=== PATIENT | female | born 1955 | race Caucasian/White ===

== ENCOUNTER 2016-10-21 17:07 | Emergency (ER) | payer OTHER ==
[~2016-10-21] VITALS: Ht 162.6 cm; Wt 98.9 kg
[2016-10-21 19:45] VITALS: BP 138/80
== END 2016-10-21 19:49 | disposition home or self-care (01) ==
LOC: ER 17:15
DX: S90.02XA Contusion of left ankle, initial encounter (principal); E11.9 Type 2 diabetes mellitus without complications; I50.9 Heart failure, unspecified; M17.12 Unilateral primary osteoarthritis, left knee; Y93.89 Activity, other specified; Y99.9 Unspecified external cause status; Y92.89 Other specified places as the place of occurrence of the external cause
CPT/HCPCS: 93971

== ENCOUNTER 2016-10-29 22:22 | Inpatient (IN) | payer OTHER ==
[~2016-10-29] VITALS: Ht 167.6 cm; Wt 81.6 kg
[2016-10-29 23:00] LABS: Basophils # (auto) 0 uL; Eosinophils # (auto) 0 uL; Hematocrit 42.2 % (36.0-46.0); Hemoglobin 13.6 g/dL (12.2-16.2); Lymphocytes # (auto) 1.4 uL; Lymphocytes % (auto) 7.3 % (10.0-50.0); Mean Corpuscular Hemoglobin 28.6 pg (28.0-32.0); Mean Corpuscular Hgb Conc. 32.2 g/dL (32.0-36.0); Mean Corpuscular Volume 88.9 fL (80.0-100.0); Mean Platelet Volume 7.2 fL (7.4-10.4); Monocytes # (auto) 0.3 uL; Monocytes % (auto) 1.7 % (0.0-12.0); Neutrophils # (auto) 17.9 uL; Platelet Count (auto) 326 10^3/uL (140-450); SUSPECT VIEW TRANSMISSION; White Blood Cell 19.6 10^3/uL (4.4-10.8)
[2016-10-29 23:18] LABS: Albumin 3.3 g/dL (3.4-5.0); Anion Gap 13 (5-15); Blood Urea Nitrogen 20 mg/dL (7-18); Calcium 8.5 mg/dL (8.5-10.1); Carbon Dioxide 25 mmol/L (21-32); Chloride 100 mmol/L (98-107); Glucose 215 mg/dL (74-106); Potassium 3.5 mmol/L (3.5-5.1); Sodium 138 mmol/L (136-145)
[2016-10-29 23:20] LABS: Aspartate Aminotransferase 26 U/L (15-37); BUN/Creatinine Ratio 10.5; GFR African American 34 mL/min; GFR Non-African American 28 mL/min; INR 1.1 (0.9-1.15); Partial Thromboplastin Time 28.2 sec (22.64-33.71); Prothrombin Time 11.3 sec (9.37-12.3)
[2016-10-29 23:24] LABS: Alkaline Phosphatase 85 U/L (45-117); Bilirubin, Total 0.7 mg/dL (0.2-1.0); Magnesium 1.7 mg/dL (1.6-2.6); Total Protein 6.8 g/dL (6.4-8.2)
[2016-10-30] MEDS ORDERED: SODIUM CHLORIDE 0.9% 1,000 ML IV ONE ×3 (00:50→13:00)
[2016-10-30] MEDS ORDERED: cefTRIAXone 1GM/50ML D5W 50 ML IV ONE (03:15)
[2016-10-30] MEDS ORDERED: ONDANSETRON HCL 4 MG/2 ML VIAL IV ONE (04:00)
[2016-10-30] MEDS ORDERED: MORPHINE SULFATE 4 MG/ML SYRG IV ONE (04:00)
[2016-10-30] MEDS ORDERED: MORPHINE SULFATE 4 MG/ML SYRG ONE (04:25)
[2016-10-30] MEDS ORDERED: SODIUM CHLORIDE 0.9% 1,000 ML IV SCH (04:31)
[2016-10-30] MEDS ORDERED: NITROGLYCERIN 0.4 MG SL TAB SL PRN (04:45)
[2016-10-30] MEDS ORDERED: AZITHROMYCIN 500MG/D5W 250ML 250 ML IV ONE (04:45)
[2016-10-30] MEDS ORDERED: MORPHINE SULF INJ 2 MG/ML SYRINGE 1ML IV PRN (04:45)
[2016-10-30] MEDS ORDERED: ASPirin 81 mg TAB PO ONE (04:45)
[2016-10-30] MEDS ORDERED: ACETAMINOPHEN 325 MG TAB PO PRN (04:45)
[2016-10-30] MEDS ORDERED: DEXTROSE (50%) 50ML SYRG IV PRN (04:45)
[2016-10-30 05:55] VITALS: BP 103/97
[2016-10-30] MEDS: ACCU-CHEK COMFORT CURVE STRIP VI SCH ×3 (06:00→18:44)
[2016-10-30] MEDS: InsuLIN REG 1unit/0.01ml Soln (100units/ml) SC SCH ×3 (06:00→18:00)
[2016-10-30] MEDS: GABAPENTIN 300 MG CAP PO SCH ×3 (06:39→22:10)
[2016-10-30 08:31] VITALS: BP 113/58
[2016-10-30] MEDS: FAMOTIDINE 20 MG TAB PO SCH ×2 (09:55→22:11)
[2016-10-30] MEDS: HYDROcodone-ACET 5/325MG TAB PO PRN ×2 (09:57→22:10)
[2016-10-30] MEDS: METOPROLOL SUCCINATE XL 50 MG TAB PO SCH (09:58)
[2016-10-30] MEDS ORDERED: BENAZEPRIL HCL 10 MG TAB PO SCH (10:00)
[2016-10-30] MEDS ORDERED: ENOXAPARIN SOD 30 MG/0.3 ML SYRINGE SC SCH (10:00)
[2016-10-30] MEDS ORDERED: ENOXAPARIN SOD 40 MG/0.4 ML SYRINGE SC SCH (10:00)
[2016-10-30] MEDS: SODIUM CHLORIDE 0.9% 1,000 ML IV SCH ×2 (12:00→22:00)
[2016-10-30 12:33] VITALS: BP 102/65
[2016-10-30 12:40] LABS: Hematocrit 40.7 % (36.0-46.0); Hemoglobin 13.4 g/dL (12.2-16.2); Mean Corpuscular Hemoglobin 28.8 pg (28.0-32.0); Mean Corpuscular Hgb Conc. 32.8 g/dL (32.0-36.0); Mean Corpuscular Volume 87.9 fL (80.0-100.0); Mean Platelet Volume 7.6 fL (7.4-10.4); Platelet Count (auto) 309 10^3/uL (140-450); Red Cell Distribution Width 14.4 % (11.6-16.0); SUSPECT VIEW TRANSMISSION; White Blood Cell 20.6 10^3/uL (4.4-10.8)
[2016-10-30 12:49] LABS: Metamyelocytes % 0; Myelocytes % 0; Promyelocytes % 0; Reactive Lymphocytes 0
[2016-10-30 12:56] LABS: Calcium 8.6 mg/dL (8.5-10.1); Magnesium 1.9 mg/dL (1.6-2.6); Potassium 4.3 mmol/L (3.5-5.1)
[2016-10-30 13:10] LABS: Platelet Estimate Adequate; RBC Morphology Normal
[2016-10-30 16:56] VITALS: BP 141/70
[2016-10-30] MEDS: MORPHINE SULF INJ 2 MG/ML SYRINGE 1ML IV PRN (18:40)
[2016-10-30] MEDS: ONDANSETRON HCL 4 MG/2 ML VIAL IV PRN (18:40)
[2016-10-30 22:00] VITALS: BP 113/60
[2016-10-31] VITALS (7 sets, daily range): BP systolic 116–153; BP diastolic 62–89
[2016-10-31] MEDS: MORPHINE SULF INJ 2 MG/ML SYRINGE 1ML IV PRN (04:22)
[2016-10-31] MEDS: InsuLIN REG 1unit/0.01ml Soln (100units/ml) SC SCH ×4 (05:59→18:00)
[2016-10-31] MEDS: ACCU-CHEK COMFORT CURVE STRIP VI SCH ×4 (06:00→16:44)
[2016-10-31] MEDS: GABAPENTIN 300 MG CAP PO SCH ×3 (06:04→21:41)
[2016-10-31 06:41] LABS: Basophils # (auto) 0 uL; Basophils % (auto) 0.2 % (0.0-2.0); Eosinophils # (auto) 0 uL; Hemoglobin 12.2 g/dL (12.2-16.2); Lymphocytes % (auto) 7.7 % (10.0-50.0); Mean Corpuscular Hemoglobin 28.7 pg (28.0-32.0); Mean Corpuscular Hgb Conc. 32.2 g/dL (32.0-36.0); Mean Corpuscular Volume 88.9 fL (80.0-100.0); Mean Platelet Volume 7.7 fL (7.4-10.4); Monocytes # (auto) 0.7 uL; Monocytes % (auto) 5.2 % (0.0-12.0); Neutrophils # (auto) 11.8 uL; Neutrophils % (auto) 86.9 % (37.0-80.0); Platelet Count (auto) 286 10^3/uL (140-450); White Blood Cell 13.6 10^3/uL (4.4-10.8)
[2016-10-31 06:58] LABS: BUN/Creatinine Ratio 34.6; Calcium 8.7 mg/dL (8.5-10.1); Magnesium 2.5 mg/dL (1.6-2.6); Potassium 3.6 mmol/L (3.5-5.1)
[2016-10-31] MEDS: SODIUM CHLORIDE 0.9% 1,000 ML IV SCH ×2 (07:49→17:49)
[2016-10-31] MEDS: HYDROcodone-ACET 5/325MG TAB PO PRN ×3 (08:47→21:41)
[2016-10-31] MEDS ORDERED: cefTRIAXone 1GM/50ML D5W 50 ML IV SCH (09:00)
[2016-10-31] MEDS ORDERED: ASPirin 81 mg TAB PO SCH (10:00)
[2016-10-31] MEDS ORDERED: AZITHROMYCIN 500MG/D5W 250ML 250 ML IV SCH (10:00)
[2016-10-31] MEDS: BENAZEPRIL HCL 10 MG TAB PO SCH ×2 (10:00→11:26)
[2016-10-31] MEDS ORDERED: ENOXAPARIN SOD 40 MG/0.4 ML SYRINGE SC SCH (10:00)
[2016-10-31] MEDS: METOPROLOL SUCCINATE XL 50 MG TAB PO SCH (11:26)
[2016-10-31] MEDS: FAMOTIDINE 20 MG TAB PO SCH ×2 (11:26→21:41)
[2016-10-31] MEDS ORDERED: METF-312 PO (12:08)
[2016-10-31] MEDS ORDERED: CANA100T OR (12:17)
[2016-10-31] MEDS ORDERED: BIOT10004 PO (12:17)
[2016-10-31] MEDS ORDERED: GABA300C8 PO (12:17)
[2016-10-31] MEDS ORDERED: GLIM4TAB42 PO (12:17)
[2016-10-31] MEDS ORDERED: FENT75DI2 TD (12:17)
[2016-10-31] MEDS ORDERED: POTA10IN PO (12:17)
[2016-10-31] MEDS ORDERED: FURO20TA3 PO (12:17)
[2016-10-31] MEDS ORDERED: DOXE100C4 PO (12:17)
[2016-10-31] MEDS ORDERED: MET50T PO (12:17)
[2016-10-31] MEDS: ONDANSETRON HCL 4 MG/2 ML VIAL IV PRN (16:08)
== END 2016-11-01 01:09 | DRG 64 ==
LOC: EDBD 22:22 → ER 22:24 → TELE 22:25 → TELE-WESTW 10-30 05:51
PROVIDERS: ADMIT Nurse Practitioner; ATTEND Internal Medicine
DX: I63.9 Cerebral infarction, unspecified (principal); J18.9 Pneumonia, unspecified organism; N17.0 Acute kidney failure with tubular necrosis; G81.91 Hemiplegia, unspecified affecting right dominant side; I13.0 Hypertensive heart and chronic kidney disease with heart failure and stage 1 through stage 4 chronic kidney disease, or unspecified chronic kidney disease; E11.65 Type 2 diabetes mellitus with hyperglycemia; R13.10 Dysphagia, unspecified; R47.01 Aphasia; M17.12 Unilateral primary osteoarthritis, left knee; I50.9 Heart failure, unspecified; I25.10 Atherosclerotic heart disease of native coronary artery without angina pectoris; E78.5 Hyperlipidemia, unspecified; E11.21 Type 2 diabetes mellitus with diabetic nephropathy; E66.01 Morbid (severe) obesity due to excess calories; E11.22 Type 2 diabetes mellitus with diabetic chronic kidney disease; F68.8 Other specified disorders of adult personality and behavior; K57.30 Diverticulosis of large intestine without perforation or abscess without bleeding; K76.0 Fatty (change of) liver, not elsewhere classified; M25.70 Osteophyte, unspecified joint; N18.9 Chronic kidney disease, unspecified; Z82.3 Family history of stroke; Z82.49 Family history of ischemic heart disease and other diseases of the circulatory system; Z82.5 Family history of asthma and other chronic lower respiratory diseases; I25.2 Old myocardial infarction; Z98.890 Other specified postprocedural states; Z68.29 Body mass index [BMI] 29.0-29.9, adult
CPT/HCPCS: 36415; 70450; 70551; 71010; 74176; 80048; 80053; 80320; 82962; 83036; 83735; 84484; 85007; 85025; 85027; 85049; 85610; 85730; 87040; 87081; 92523; 92610; 93005; 93306; 93886; 93971; 95819; 96361; 96374; 96375; 97001; J0696; J1815; J2405